=== PATIENT | male | born 1965 | race Caucasian/White ===

== ENCOUNTER 2017-09-06 06:53 | Day surgery (SDC) | END 2017-09-06 10:38 | disposition home or self-care (01) ==

== ENCOUNTER 2018-11-09 18:46 | Emergency (ER) | payer OTHER ==
[~2018-11-09] VITALS: Ht 172.7 cm; Wt 89.5 kg
[~2018-11-09 18:46] MED LIST: BENAZEPRIL; IBUPROFEN
[2018-11-09 19:01] VITALS: Ht 172.7 cm; Wt 89.5 kg
[2018-11-09] MEDS ORDERED: KETOROLAC 30 MG INJ IV STA (20:24)
[2018-11-09] MEDS ORDERED: ASPIRIN 325 MG TAB PO STA (20:24)
[2018-11-09 22:13] VITALS: BP 150/80; PULSE 73; RESP 15
--- NOTE | 2018-11-14 06:49 | ERD ---
ER Documentation Chief Complaint Chief Complaint CP; BILAT ARM, HAND PAIN AND NUMBNESS X'S 2 WEEKS HPI This is a very pleasant 52-year-old male that has a known history of bilateral carpal tunnel syndrome. He presents to the emergency department indicating that he has been experiencing intermittent chest pain for 2 weeks. He states it is a sharp shooting pain. He does state that he complains of numbness and tingling of both of his upper extremities but he states this is been present for several months due to his carpal tunnel syndrome and is currently waiting for further evaluation possible surgical intervention. He works as a building construction contractor and states that he undergoes repetitive movements which was a result of his carpal tunnel syndrome. He denies any shortness of breath. He has no chest pressure that radiates to the neck or back. He does not smoke tobacco. There is no family history of coronary artery disease. He did not take any analgesic medication prior to arrival. He states that sharp shooting chest pain is exacerbated when he moves his left arm. He denies any recent or remote blunt or penetrating chest trauma. He has no family history of coronary artery disease in his first-degree relatives. ROS All systems reviewed and are negative except as per history of present illness. Medications Home Meds Reported Medications [Ibuprofen ] No Conflict Check 09/06/17 [Benazepril ] No Conflict Check 09/06/17 Allergies Allergies: Coded Allergies: No Known Allergy (Unverified , 09/06/17) PMhx/Soc History of Surgery: No Anesthesia Reaction: No Hx Neurological Disorder: No Hx Respiratory Disorders: No Hx Cardiac Disorders: Yes (HTN) Hx Psychiatric Problems: No Hx Miscellaneous Medical Probl: No Hx Alcohol Use: No Hx Substance Use: No Hx Tobacco Use: No Smoking Status: Never smoker Physical Exam Physical Exam Constitutional:Well-developed. Well-nourished. HEENT:Normocephalic. Atraumatic.Pupils were equal round reactive to light. Neck: No nuchal rigidity. No lymphadenopathy. No posterior cervical spine tenderness or step-offs. Respiratory: Not using accessory muscles of respiration.Lungs were clear to auscultation bilaterally. No rhonchi. No rales. No wheezing. Cardiovascular: Regular rate regular rhythm.No murmurs. No rubs were appreciated.S1, S2 normal. Distal pulses are palpable 2+ bilaterally. Reproducible chest wall tenderness with no crepitus no ecchymosis no flail chest GI: Abdomen was soft. Nontender. Non Distended. No pulsatile abdominal masses or bruits. No rebound. No guarding. Bowel sounds were present and normal. Muscle skeletal: Full range of motion of both the upper and lower extremities bilaterally.Normal muscle tone.No assymetrical calf tenderness or swelling. Skin: No petechia, no purpura. No lesions on the palms or the soles of the feet. No maculopapular rash. NEURO: Patient was alert, awake, orientated x3.No facial droop. Gait observed and normal with no ataxia.Speech had regular rate and rhythm. No focal neurological deficits. Results 24 hrs Laboratory Tests Test 11/09/18 20:11 White Blood Count 7.5 10^3/ul Red Blood Count 4.43 10^6/ul Hemoglobin 13.2 g/dl Hematocrit 39.8 % Mean Corpuscular Volume 89.8 fl Mean Corpuscular Hemoglobin 29.8 pg Mean Corpuscular Hemoglobin Concent 33.2 g/dl Red Cell Distribution Width 12.8 % Platelet Count 269 10^3/UL Mean Platelet Volume 10.3 fl Immature Granulocytes % 0.100 % Neutrophils % 50.3 % Lymphocytes % 36.7 % Monocytes % 10.0 % Eosinophils % 2.5 % Basophils % 0.4 % Nucleated Red Blood Cells % 0.0 /100WBC Immature Granulocytes # 0.010 10^3/ul Neutrophils # 3.8 10^3/ul Lymphocytes # 2.7 10^3/ul Monocytes # 0.8 10^3/ul Eosinophils # 0.2 10^3/ul Basophils # 0.0 10^3/ul Nucleated Red Blood Cells # 0.0 10^3/ul Prothrombin Time 11.9 Sec Prothrombin Time Ratio 0.9 INR International Normalized Ratio 0.87 Activated Partial Thromboplast Time 30.9 Sec Sodium Level 139 mmol/L Potassium Level 4.0 mmol/L Chloride Level 105 mmol/L Carbon Dioxide Level 26 mmol/L Anion Gap 8 Blood Urea Nitrogen 18 mg/dl Creatinine 0.73 mg/dl Est Glomerular Filtrat Rate mL/min > 60 mL/min Glucose Level 104 mg/dl Calcium Level 8.8 mg/dl Total Bilirubin 0.2 mg/dl Direct Bilirubin 0.00 mg/dl Indirect Bilirubin 0.2 mg/dl Aspartate Amino Transf (AST/SGOT) 25 IU/L Alanine Aminotransferase (ALT/SGPT) 27 IU/L Alkaline Phosphatase 62 IU/L Creatine Kinase 159 IU/L Creatine Kinase Index 0.6 Creatinine Kinase MB (Mass) 1.02 ng/ml Troponin I < 0.012 ng/ml B-Type Natriuretic Peptide 63 PG/ML Total Protein 7.3 g/dl Albumin 4.0 g/dl Globulin 3.30 g/dl Albumin/Globulin Ratio 1.21 Current Medications Medications Dose Sig/Mello Start Time Status Last (Trade) Ordered Route PRN Stop Time Admin Dose Reason Admin Aspirin 325 mg ONCE STAT 11/09/18 DC 11/09/18 (Aspirin) PO 20:24 20:36 11/09/18 20:27 Ketorolac 30 mg ONCE STAT 11/09/18 DC 11/09/18 Tromethamine IV 20:24 20:36 (Toradol) 11/09/18 20:27 Procedures/MDM The patient presented to the emergency department complaining of chest pain. My clinical evaluation and workup was to distinguish minor causes of chest pain from acute life threatening cardiopulmonary causes such as myocardial infarction, pulmonary embolism, aortic dissection, esophageal rupture, cardiac tamponade, The patient was placed on a rv repairer, continuous pulse oximetry and IV access established by nursing staff. The patient was given aspirin with no improvement of his pain. 12 Lead EKG tracing ordered and reviewed by myself showed: Normal sinus rhythm of 62 bpm and no arrhythmia. OK interval normal. QRS duration normal. No ST segment elevation No ST segment depression. No changes consistent with acute ischemia. The patient was given IV Toradol with improvement of his symptoms. I obtained a chest radiograph reviewed by myself the radiologist and there is no infiltrates no pneumothorax The patients chest pain was reproduced by palpation and horizontal flexion of the arms. It was my clinical impression that the pain was a result of inflammation of the skin and subcutaneous structures of the chest wall versus myocardial ischemia. I felt the patient had low-risk chest pain and could therefore be safely discharged with close follow-up. He does state he will follow-up with his primary care physician to schedule for an outpatient cardiology consultation. Departure Diagnosis: Primary Impression: Costochondritis, acute Condition: Fair Patient Instructions: Costochondritis, Carpal Tunnel Syndrome Prevention Tips, Paraesthesias HAMZAH TURPIN MD Nov 14, 2018 06:49
== END 2018-11-10 04:13 | disposition home or self-care (01) ==
LOC: E/R 18:46
DX: M94.0 Chondrocostal junction syndrome [Tietze] (principal); I10 Essential (primary) hypertension
CPT/HCPCS: 36415; 71045; 80053; 82550; 82553; 83880; 84484; 85025; 85610; 85730; 93005; 96374; J1885; Z7502; Z7610